=== PATIENT | female | born 1995 | race Caucasian/White ===

== ENCOUNTER 2017-04-17 19:52 | Outpatient (CLI) | payer BC ==
[~2017-04-17] VITALS: Ht 172.7 cm; Wt 69.0 kg
== END 2017-04-17 21:10 | disposition home or self-care (01) ==
LOC: LDOP 19:52
PROVIDERS: ATTEND Obstetrics & Gynecology
DX: O46.92 Antepartum hemorrhage, unspecified, second trimester (principal); Z3A.25 25 weeks gestation of pregnancy
CPT/HCPCS: 59025; 99201; G0463

== ENCOUNTER 2017-07-25 13:32 | Outpatient (CLI) | payer BC ==
[~2017-07-25] VITALS: Ht 175.3 cm; Wt 77.3 kg
[2017-07-25 14:01] VITALS: BP 125/86
== END 2017-07-25 15:10 | disposition home or self-care (01) ==
LOC: LDOP 13:32
PROVIDERS: ATTEND Obstetrics & Gynecology
DX: O26.899 Other specified pregnancy related conditions, unspecified trimester (principal); R10.9 Unspecified abdominal pain; Z3A.00 Weeks of gestation of pregnancy not specified
CPT/HCPCS: 59025; 99211; G0463

== ENCOUNTER 2017-07-26 08:13 | Inpatient (IN) | payer BC ==
[~2017-07-26] VITALS: Ht 177.8 cm; Wt 77.5 kg
[2017-07-26] MEDS ORDERED: OXYTOCIN 30U/ 0.9% NaCL 500ML 500 ML IV PRN (08:21)
[2017-07-26] MEDS ORDERED: D5%-LACTATED RINGERS 1,000 ML IV SCH (08:21)
[2017-07-26] MEDS ORDERED: OXYTOCIN 30U/ 0.9% NaCL 500ML 500 ML IV ONE (08:21)
[2017-07-26 08:25] VITALS: BP 123/82
[2017-07-26] MEDS ORDERED: CALCIUM CARBONATE 500 MG TAB.CHEW PO PRN (08:30)
[2017-07-26] MEDS ORDERED: SODIUM CITRATE/CITRIC ACID 30 ML UDC PO PRN (08:30)
[2017-07-26] MEDS ORDERED: FENTANYL PF 100 MCG/2ML IVPush PRN (08:30)
[2017-07-26] MEDS ORDERED: ONDANSETRON 2MG/ML, 2ML IVPush PRN (08:30)
[2017-07-26] MEDS ORDERED: ALUMINUM/MAG/SIMETHICONE 30 ML UDC PO PRN (08:30)
[2017-07-26] MEDS ORDERED: LACTATED RINGERS 1,000 ML IV SCH (08:31)
[2017-07-26] MEDS ORDERED: FENTANYL/BUPIV./NS/PF 250 ML EPIDCONT SCH (08:31)
[2017-07-26 08:56] LABS: MEAN CORPUSCULAR HEMOGLOBIN 30.9 pg (27.0-34.8); MEAN CORPUSCULAR VOLUME 90.8 fL (80-100); MEAN PLATELET VOLUME 10.1 fL (7.4-10.4); PLATELET COUNT 283 x10^3/uL (130-400); RED BLOOD COUNT 4.41 x10^6/uL (3.82-5.3); RED CELL DISTRIBUTION WIDTH 13.1 % (9.6-15.2)
[2017-07-26] MEDS ORDERED: NALOXONE 0.4 MG/ML, 1ML IVPush PRN (09:00)
[2017-07-26] MEDS ORDERED: EPHEDRINE 50 MG/ML, 1ML IVPush PRN (09:00)
[2017-07-26] MEDS ORDERED: LACTATED RINGERS 1,000 ML IVBOLUS PRN (09:00)
[2017-07-26] MEDS ORDERED: PLEASE ENTER HEIGHT AND WEIGHT MC SCH (09:00)
[2017-07-26 09:13] LABS: BASOPHILS # (AUTO) 0.02 x10^3/uL (0-0.1); BASOPHILS % (AUTO) 0 % (0-1); EOSINOPHILS % (AUTO) 0 % (1-7); LYMPHOCYTES # (AUTO) 1.13 x10^3/uL (1-3.4); LYMPHOCYTES % (AUTO) 7 % (22-44); MD SCAN; MONOCYTES # (AUTO) 0.85 x10^3/uL (0.2-0.8); MONOCYTES % (AUTO) 5 % (2-9); NEUTROPHILS # (AUTO) 14.64 x10^3/uL (1.8-6.8); NEUTROPHILS % (AUTO) 88 % (42-75)
[2017-07-26] MEDS: LACTATED RINGERS 1,000 ML IV SCH ×2 (09:18→11:40)
[2017-07-26] MEDS ORDERED: BUPIVACAINE/PF 0.25% ONE (09:30)
[2017-07-26] MEDS ORDERED: FENTANYL/BUPIV./NS/PF 250 ML EPIDCONT ONE (09:30)
[2017-07-26 09:31] LABS: MICROSCOPIC INDICATED
[2017-07-26] MEDS ORDERED: OXYTOCIN 30U/ 0.9% NaCL 500ML 500 ML ONE (10:18)
[2017-07-26] MEDS ORDERED: MISOPROSTOL 200 MCG TABLET ONE (10:19)
[2017-07-26] MEDS ORDERED: NEWBORN KIT ONE (16:38)
[2017-07-26] MEDS: OXYTOCIN 30U/ 0.9% NaCL 500ML 500 ML IV SCH (17:27)
[2017-07-26] MEDS ORDERED: ACETAMINOPHEN 325 MG TABLET PO PRN (17:30)
[2017-07-26] MEDS ORDERED: METHYLERGONOVINE 0.2 MG/ML IM PRN (17:30)
[2017-07-26] MEDS ORDERED: HYDROcodone/APAP 5/325 TABLET PO PRN (17:30)
[2017-07-26] MEDS ORDERED: OXYTOCIN 10 UNITS/ML, 1ML IM PRN (17:30)
[2017-07-26] MEDS ORDERED: CARBOPROST TROMETHAMINE 250 MCG/ML, 1ML IM PRN (17:30)
[2017-07-26] MEDS ORDERED: ONDANSETRON 2MG/ML, 2ML IV PRN (17:30)
[2017-07-26] MEDS ORDERED: MISOPROSTOL 200 MCG TABLET PR PRN (17:30)
[2017-07-26] MEDS ORDERED: IBUPROFEN 600 MG TABLET PO PRN (17:30)
[2017-07-26 19:45] VITALS: BP 128/82
[2017-07-26] MEDS ORDERED: DOCUSATE 100 MG CAPSULE PO PRN (21:00)
[2017-07-27] MEDS: LACTATED RINGERS 1,000 ML IV SCH ×2 (00:21→01:32)
[2017-07-27 00:30] VITALS: BP 89/54
[2017-07-27 00:59] LABS: MEAN CORPUSCULAR HEMOGLOBIN 31.1 pg (27.0-34.8); MEAN CORPUSCULAR VOLUME 91.3 fL (80-100); MEAN PLATELET VOLUME 9.8 fL (7.4-10.4); PLATELET COUNT 253 x10^3/uL (130-400); RED BLOOD COUNT 4.16 x10^6/uL (3.82-5.3); RED CELL DISTRIBUTION WIDTH 12.7 % (9.6-15.2)
[2017-07-27 01:01] LABS: BASOPHILS # (AUTO) 0.02 x10^3/uL (0-0.1); BASOPHILS % (AUTO) 0 % (0-1); EOSINOPHILS % (AUTO) 1 % (1-7); LYMPHOCYTES # (AUTO) 1.33 x10^3/uL (1-3.4); LYMPHOCYTES % (AUTO) 8 % (22-44); MD SCAN; MONOCYTES # (AUTO) 1.49 x10^3/uL (0.2-0.8); MONOCYTES % (AUTO) 8 % (2-9); NEUTROPHILS # (AUTO) 14.81 x10^3/uL (1.8-6.8); NEUTROPHILS % (AUTO) 84 % (42-75)
[2017-07-27] MEDS: OXYTOCIN 30U/ 0.9% NaCL 500ML 500 ML IV SCH (01:32)
[2017-07-27 04:31] VITALS: BP 97/65
[2017-07-27 07:10] VITALS: BP 109/73
[2017-07-27] MEDS ORDERED: PRENATAL VIT/IRON/FA 1 EACH TABLET PO SCH (09:00)
[2017-07-27] MEDS ORDERED: HYDR-3240 PO (12:29)
[2017-07-27] MEDS ORDERED: IBUP-1222 PO (12:29)
[2017-07-27] MEDS ORDERED: SENN1TAB7 PO (12:30)
== END 2017-07-27 17:00 | disposition home or self-care (01) | DRG 775 ==
LOC: LDIP 08:13 → 2NW 19:33
PROVIDERS: ADMIT Obstetrics & Gynecology; ATTEND Obstetrics & Gynecology
PROC: 10E0XZZ Delivery of Products of Conception, External Approach (ICD-10-PCS; principal; 2017-07-26)
PROC: 10907ZC Drainage of Amniotic Fluid, Therapeutic from Products of Conception, Via Natural or Artificial Opening (ICD-10-PCS; 2017-07-26)
PROC: 0UQMXZZ Repair Vulva, External Approach (ICD-10-PCS; 2017-07-26)
PROC: 3E0R3BZ Introduction of Anesthetic Agent into Spinal Canal, Percutaneous Approach (ICD-10-PCS; 2017-07-26)
PROC: 00HU33Z Insertion of Infusion Device into Spinal Canal, Percutaneous Approach (ICD-10-PCS; 2017-07-26)
DX: O77.0 Labor and delivery complicated by meconium in amniotic fluid (principal); O70.0 First degree perineal laceration during delivery; Z37.0 Single live birth; Z3A.40 40 weeks gestation of pregnancy
CPT/HCPCS: 36415; 81001; 85025; 86850; 86900; J3490; J2590; J3010; J7120